=== PATIENT | male | born 1960 | race Hispanic/Latino ===

== ENCOUNTER 2019-09-18 15:34 | Day surgery (SDC) | payer OTHER ==
[2019-09-18] MEDS ORDERED: ONDANSETRON 4 MG/2 ML INJ IV PRN (16:03)
--- NOTE | 2019-09-18 16:04 | Anesthesia Day of Surgery ---
Anesthesia Day of Surgery - Day of Surgery Patient Examined: Yes Patient H&P Reviewed: Yes Patient is NPO: Yes
[2019-09-18] MEDS ORDERED: LACTATED RINGERS 1,000 ML ONE ×2 (16:06→18:18)
--- NOTE | 2019-09-18 16:11 | Anesthesia Consultation ---
Anesthesia Consult and Med Hx Date of service: 09/18/19 - Airway Anesthetic Teeth Evaluation: Good ROM Head & Neck: Adequate Mental/Hyoid Distance: Adequate Mallampati Class: Class III Intubation Access Assessment: Possibly Difficult - Pre-Operative Health Status ASA Pre-Surgery Classification: ASA3 Proposed Anesthetic Plan: General - Pulmonary Hx Smoking: Yes (STOPPED X 12 YRS ( 2 PPD X 30YRS)) Hx Sleep Apnea: Yes (DX SLEEP APNEA WITH CPAP USE.) - Cardiovascular System Hx Hypertension: Yes (X 1 YR. Pt states can climb two flights of stairs) - Central Nervous System Hx Back Pain: Yes Hx Psychiatric Problems: Yes (Anxiety/depression) - Gastrointestinal Hx Ulcer: No (Ulcerative colitis in remission X ten years) - Endocrine Hx Renal Disease: Yes (CKD Stage 3 last year and improved now) Hx Liver Disease: Yes (Fatty liver) Hx Non-Insulin Dependent Diabetes: Yes Hx Hyperthyroidism: Yes ( "WATCHING FOR NOW") - Hematic Hx Anemia: Yes (NOT RECENT) - Other Systems Hx Cancer: No
[2019-09-18] MEDS ORDERED: LIDOCAINE MPF (2%) 20 MG/1 ML VIAL 5 ML ONE (16:16)
[2019-09-18] MEDS ORDERED: fentaNYL 100 MCG/2 ML INJ ONE (16:16)
[2019-09-18] MEDS ORDERED: PROPOFOL 200 MG/20 ML VIAL IV ONE (16:17)
[2019-09-18] MEDS ORDERED: MIDAZOLAM 2 MG/2 ML INJ ONE (16:18)
[2019-09-18] MEDS ORDERED: MIDAZOLAM 2 MG/2 ML INJ IV NR (17:00)
[2019-09-18] MEDS ORDERED: LACTATED RINGERS 1,000 ML IV SCH (17:00)
[2019-09-18] MEDS ORDERED: ONDANSETRON 4 MG/2 ML INJ ONE (17:30)
[2019-09-18] MEDS ORDERED: SUCCINYLCHOLINE CHLORIDE 200 MG/10 ML INJ MDV ONE (17:30)
[2019-09-18] MEDS ORDERED: ePHEDrine SULFATE 50 MG/1 ML INJ ONE (17:30)
[2019-09-18] MEDS ORDERED: dexAMETHasone 20 MG/5 ML VIAL ONE (17:30)
[2019-09-18] MEDS ORDERED: SODIUM CHLORIDE P/F VIAL 10 ML 10 ML ONE (17:31)
[2019-09-18] MEDS ORDERED: PHENYLEPHRINE/NS 1,000 MCG/10 ML SYRINGE (OR USE) IV ONE (17:33)
[2019-09-18] MEDS ORDERED: WATER FOR IRRIG STERILE 2000 ML IR ONE (17:45)
[2019-09-18] MEDS ORDERED: GLYCOPYRROLATE 0.4 MG/2 ML INJ ONE (18:14)
[2019-09-18] MEDS: fentaNYL 100 MCG/2 ML INJ IV PRN ×2 (19:00→19:23)
--- NOTE | 2019-09-18 19:02 | Post Anesthesia Evaluation ---
- Post Anesthesia Evaluation Patient Participated: Yes Airway Patent: Yes Stable Respiratory Function: Yes Nausea/Vomiting: No Temp > 96.8F: Yes Pain Manageable: Yes Adequeate Hydration: Yes Anesthesia Complications: No Block Receding Appropriately: Not Applicable Patient on Ventilator: No
--- NOTE | 2019-09-18 19:16 | Fluoroscopy Report ---
6 fluoroscopic images submitted Indication: Intraoperative localization Impression: 6 images of the abdomen were submitted for documentation purposes with radiology involve ment. Right-sided retrograde pyelogram performed with stone removal and double-J ureteral stent plac ement in satisfactory position. Approximately 5 mL of Omnipaque 300 was used for this exam. Please re minor to the operative note for complete details. Fluoroscopic time: 54 seconds Signer Name: Salvador Foster MD Signed: 09/18/2019 7:11 PM Workstation Name: [id number]
[2019-09-18 20:44] VITALS: BP 111/60
--- NOTE | 2019-09-18 23:19 | Operative Report ---
PREOPERATIVE DIAGNOSIS: Huge right distal ureteral stone. POSTOPERATIVE DIAGNOSIS: Huge right distal ureteral stone. PROCEDURE: Cystoscopy, laser of stone, double-J stent, ureteroscopy, extraction of multiple stones. SURGEON: Dr. Pace. ANESTHESIA: General. FINDINGS: This is a gentleman with a huge stone at the orifice. It is over a centimeter. He had one above it. He now presents for treatment. DESCRIPTION OF PROCEDURE: The patient was brought to the operating room and placed on the operating table. Following induction of anesthesia, placed in lithotomy position, prepped and draped in usual sterile fashion. Cystourethroscopy showed no bladder lesions. There was a stone, but it was way too big to get a wire by it. We lasered the stone and made some room and excavated the cavity of the stone. Once we chipped away at the stone, it took quite some time until laser. First, we started with the 200 fiber, it was too small, we went to 300 fiber. We kept the lasering the stone. We developed a cavity. We were able to place a wire up in the kidney. We then extracted multiple fragments and one after the bigger stones that moved a little proximal. The patient tolerated the procedure well. No complications. There was a huge middle lobe as well. Marquez was left, brought to recovery in stable condition. JOB# [id number] ADRIEL/MARCIE
--- NOTE | 2019-09-19 09:15 | Operative Report ---
PREOPERATIVE DIAGNOSES: Massive right distal stone with other renal stone. POSTOPERATIVE DIAGNOSES: Massive right distal stone with other renal stone. PROCEDURE: Cystoscopy, ureteroscopy, laser of huge stone double-J stent extraction of stone. SURGEON: Dr. Stephen Pace. ANESTHESIA: General. FINDINGS: This is a gentleman who presented with intermittent pain, right. He had a 1 cm stone in right distal ureter with one above it. He now presents for treatment. DESCRIPTION OF PROCEDURE: The patient was brought to the operating room and placed on the operating table. Following induction of anesthesia, placed in lithotomy position, prepped and draped in usual sterile fashion. Cystourethroscopy showed a large prostate with a median bar. We were able to see the stone , but it was huge. Could not get a wire by a laser required fragmenting and excavating a huge crater within the stone. Eventually, we were able to get a wire in and the rest of the stone was removed. The patient tolerated the procedure well. Double J was placed, brought to recovery room with a Marquez, double J, in stable condition. JOB# [id number] ADRIEL/MARCIE
== END 2019-09-18 20:00 | disposition home or self-care (01) ==
LOC: OR 15:34
PROVIDERS: ATTEND Urology
DX: N20.0 Calculus of kidney (principal); I12.9 Hypertensive chronic kidney disease with stage 1 through stage 4 chronic kidney disease, or unspecified chronic kidney disease; E11.22 Type 2 diabetes mellitus with diabetic chronic kidney disease; N18.3 Chronic kidney disease, stage 3 (moderate); R35.0 Frequency of micturition; R39.15 Urgency of urination; R31.0 Gross hematuria; N40.1 Benign prostatic hyperplasia with lower urinary tract symptoms; G43.909 Migraine, unspecified, not intractable, without status migrainosus; E78.00 Pure hypercholesterolemia, unspecified; G47.30 Sleep apnea, unspecified; M19.90 Unspecified osteoarthritis, unspecified site; E05.90 Thyrotoxicosis, unspecified without thyrotoxic crisis or storm; F32.9 Major depressive disorder, single episode, unspecified; F41.9 Anxiety disorder, unspecified; Z88.0 Allergy status to penicillin; Z79.899 Other long term (current) drug therapy; Z79.84 Long term (current) use of oral hypoglycemic drugs; Z87.891 Personal history of nicotine dependence; Z98.49 Cataract extraction status, unspecified eye; Z98.890 Other specified postprocedural states; Z86.2 Personal history of diseases of the blood and blood-forming organs and certain disorders involving the immune mechanism
CPT/HCPCS: 52356; 74420; 82962; A4217; C1758; C1769; C2617; J0330; J1100; J1956; J2250; J2370; J2405; J2704; J3010; J7120; Q9967